=== PATIENT | male | born 1985 | race Caucasian/White ===

== ENCOUNTER 2017-08-21 09:29 | Emergency (ER) | payer BC, OTHER ==
[~2017-08-21] VITALS: Ht 182.9 cm; Wt 90.7 kg
[2017-08-21] MEDS ORDERED: STRATTERA40 MG PO (09:59)
[2017-08-21] MEDS ORDERED: ADDERALL XR 2525 MG PO (09:59)
[2017-08-21] MEDS ORDERED: HYDROCORTISONE30 G9 RECTAL (10:25)
[2017-08-21] MEDS ORDERED: MIRALAX17 GM PO (10:25)
== END 2017-08-21 10:48 | disposition home or self-care (01) ==
LOC: EDBD 09:29 → ER 09:29
DX: K64.4 Residual hemorrhoidal skin tags (principal); K59.00 Constipation, unspecified

== ENCOUNTER → 2018-08-25 | Outpatient (CLI) | payer OTHER ==
[~2018-08-25] MED LIST: ADDERALL XR 2525 MG PO; HYDROCORTISONE30 G9 RECTAL; MIRALAX17 GM PO; STRATTERA40 MG PO
== END ==
LOC: CAT 15:16
DX: Z13.6 Encounter for screening for cardiovascular disorders (principal); E78.00 Pure hypercholesterolemia, unspecified